=== PATIENT | female | born 1955 | race Two or more races ===

== ENCOUNTER 2018-01-15 19:03 | Emergency (ER) | payer SELFPAY ==
[2018-01-15 19:26] VITALS: BP 155/86
--- NOTE | 2018-01-15 19:49 | UC ---
Shoulder Pain HPI - HPI Summary HPI Summary: 62 yo female presents accompanied by a friend who is acting as her hide inspector and sorter as pt speaks very little German. She tells me that yesterday she woke up with right upper back/neck pain that has persisted into today. She does not recall any injury. She describes the pain as an cramp and ache. She has took ibuprofen this morning with no relief. Denies chest pain, radiation of pain, headache, dizziness, numbness, or tingling. - History of Current Complaint Chief Complaint: UCUpperExtremity Stated Complaint: THROAT,NECK AND SHOULDER PAIN Time Seen by Provider: 01/15/18 19:49 Hx Obtained From: Family/Wire Coiner Hx Last Menstrual Period: post menopause Onset/Duration: Sudden Onset Timing: Constant Severity Initially: Moderate Severity Currently: Moderate Pain Intensity: 6 Pain Scale Used: 0-10 Numeric - Allergies/Home Medications Allergies/Adverse Reactions: Allergies Allergy/AdvReac Type Severity Reaction Status Date / Time No Known Allergies Allergy Verified 01/15/18 20:03 Home Medications: Home Medications Ibuprofen [Advil] 01/15/18 [History] PMH/Surg Hx/FS Hx/Imm Hx - Additional Past Medical History Additional PMH: None Previously Healthy: Yes - Surgical History Surgical History: None - Family History Known Family History: Positive: None - Social History Occupation: Unemployed Lives: With Family Alcohol Use: None Substance Use Type: None Smoking Status (MU): Never Smoked Tobacco Review of Systems Constitutional: Negative Skin: Negative Respiratory: Negative Cardiovascular: Negative Motor: Negative Neurovascular: Negative Musculoskeletal: Other: - Right upper back/neck pain Neurological: Negative Psychological: Negative All Other Systems Reviewed And Are Negative: Yes Physical Exam - Summary Physical Exam Summary: GENERAL: NAD. WDWN. No pain distress. SKIN: No rashes, sores, lesions, or open wounds. NECK: FROM. No LAD. No vertebral tenderness. See MSK CHEST: No accessory muscle use. Breathing comfortably and in no distress. CV: Pulses intact radial and ulnar. MSK: RIGHT trapezius: TTP at superior portion near levator. Pain reproduced with turning the head to the left. Negative spurlings. RIGHT shoulder: FROM. Strength 5/5. No edema or obvious bony deformities. Negative apprehension, empty can, hernandez-robert. NEURO: Alert. Sensations intact C4-T1. PSYCH: Age appropriate behavior. Triage Information Reviewed: Yes Vital Signs: Initial Vital Signs Temp 97.9 F 01/15/18 19:20 Pulse 80 01/15/18 19:20 Resp 16 01/15/18 19:20 BP 155/86 01/15/18 19:20 Pulse Ox 100 01/15/18 19:20 Shoulder Course/Dx - Course Course Of Treatment: Suspect muscle spasm. Last dose of any NSAID was 6+ hours ago, therefore 30mg of toradol was given IM in the clinic. Rx for flexril and advised to perform stretching exercises. F/u prn. - Differential Dx/Diagnosis Provider Diagnoses: Right neck spasm Discharge - Sign-Out/Discharge Documenting (check all that apply): Patient Departure - Discharge Plan Condition: Stable Disposition: HOME Prescriptions: Cyclobenzaprine TAB* [Flexeril 10 MG TAB*] 10 mg PO BID PRN #10 tab PRN Reason: Pain Patient Education Materials: Muscle Spasm (ED) Referrals: No Primary Care Phys,NOPCP [Primary Care Provider] - Additional Instructions: If you develop a fever, shortness of breath, chest pain, new or worsening symptoms - please call your PCP or go to the ED. Your blood pressure was high at todays visit. Please see your primary provider within 4 weeks for recheck and re-evaluation. - Billing Disposition and Condition Condition: STABLE Disposition: Home
[2018-01-15] MEDS ORDERED: Ketorolac INJ* 30 MG/ML 1 ML VIAL IM ONE (20:00)
== END 2018-01-15 20:15 | disposition home or self-care (01) ==
LOC: UCEAST 19:03
DX: M62.838 Other muscle spasm (principal); M54.89 Other dorsalgia
CPT/HCPCS: 96372; 99202; G0463; J1885

== ENCOUNTER 2018-04-30 16:53 | Emergency (ER) | payer SELFPAY ==
[2018-04-30 17:28] VITALS: BP 159/83
[2018-04-30] MEDS ORDERED: Ketorolac INJ* 60 MG/2 ML VIAL IM ONE (19:28)
--- NOTE | 2018-04-30 19:34 | UC ---
Neck Pain HPI - HPI Summary HPI Summary: 2 days of right neck/shoulder muscle pain. No trauma or injury. No numbness or tingling. Patient denies chest pain, shortness of breath, weakness. Had similar symptoms in December 2017 and was seen here in . Diagnosed with muscle strain and treated with Toradol and Flexeril. Patient states this helped and has come here seeking the same treatment. Has not taken any ibuprofen or other analgesics prior to presentation today. Pt only speaks [place] so the steel fixer service was used. - History of Current Complaint Chief Complaint: UCUpperExtremity Stated Complaint: SHOULDER,ARM PAIN Time Seen by Provider: 04/30/18 19:04 Hx Obtained From: Patient, Family/Assistant Kitchen Manager - Hx Last Menstrual Period: post menopause Onset/Duration Of Injury/Symptoms: Days Mechanism Of Injury: No Known Trauma Onset/Duration: Gradual Onset, Lasting Days, Still Present Severity: Moderate Pain Intensity: 3 Pain Scale Used: 0-10 Numeric Location: Discrete At: - RIGHT NECK/SHOULDER Character: Sharp, Spasmotic Aggravating Factors: Movement Alleviating Factors: Nothing Associated Signs & Symptoms: Negative: Swelling, Redness, Bruising, Fever, Nuchal Rigity, Weakness, Headache, Paresthesia - Allergies/Home Medications Allergies/Adverse Reactions: Allergies Allergy/AdvReac Type Severity Reaction Status Date / Time No Known Allergies Allergy Verified 04/30/18 17:28 Home Medications: Home Medications Acetaminophen TAB* [Tylenol TAB*] 650 mg PO Q4H PRN 04/30/18 [History Confirmed 04/30/18] PMH/Surg Hx/FS Hx/Imm Hx Previously Healthy: Yes - Surgical History Surgical History: None - Family History Known Family History: Positive: None - Social History Alcohol Use: None Substance Use Type: None Smoking Status (MU): Never Smoked Tobacco Review Of Systems Constitutional: Positive: Negative Skin: Positive: Negative Respiratory: Positive: Negative Cardiovascular: Positive: Negative Gastrointestinal: Positive: Negative Musculoskeletal: Positive: Myalgia All Other Systems Reviewed And Are Negative: Yes Physical Exam Triage Information Reviewed: Yes Appearance: Well-Appearing, No Pain Distress, Well-Nourished Vital Signs: Initial Vital Signs Temp 98.1 F 04/30/18 17:22 Pulse 66 04/30/18 17:22 Resp 16 04/30/18 17:22 BP 159/83 04/30/18 17:22 Pulse Ox 100 04/30/18 17:22 Vital Signs Reviewed: Yes Eyes: Positive: Conjunctiva Clear ENT: Positive: Hearing grossly normal Neck: Positive: Supple, No Lymphadenopathy, Other: - TTP RIGHT TRAPEZIUS Respiratory: Positive: No respiratory distress, No accessory muscle use Cardiovascular: Positive: Pulses Normal Abdomen Description: Positive: Soft Musculoskeletal: Positive: ROM Intact, No Edema, Other: - NO BONY TENDERNESS NECK OR RIGHT SHOULDER Neurological: Positive: Alert Psychological: Positive: Normal Response To Family, Age Appropriate Behavior Skin: Negative: rashes Neck Pain Course/Dx - Differential Dx/Diagnosis Provider Diagnoses: ACUTE RIGHT TRAPEZIUS STRAIN Discharge - Sign-Out/Discharge Documenting (check all that apply): Patient Departure All imaging exams completed and their final reports reviewed: No Studies - Discharge Plan Condition: Stable Disposition: HOME Prescriptions: Cyclobenzaprine TAB* [Flexeril TAB*] 10 mg PO BID PRN #20 tab PRN Reason: Pain Patient Education Materials: Muscle Spasm (ED) Referrals: No Primary Care Phys,NOPCP [Primary Care Provider] - Additional Instructions: YOU RECEIVED 30MG TORADOL INJECTION TODAY. TAKE MUSCLE RELAXER NEEDED. USE WITH CAUTION IT CAN MAKE YOU DROWSY. BE SURE TO GO THROUGH SLOW RANGE OF MOTION AND STRETCHING EXERCISES DAILY YOU ARE ABLE TO PREVENT STIFFENING UP AND MAKING THE DISCOMFORT WORSE. GO TO THE ED WITHOUT FAIL IF YOU DEVELOP WORSENING PAIN, NUMBNESS/TINGLING OR ANY OTHER CONCERNING SYMPTOMS. CALL THE NUMBER BELOW FOR ASSISTANCE IN ESTABLISHING WITH A PCP An additional resource available to assist in finding the appropriate physician for your health care needs is the [facility] ([facility]). You may contact them by calling [phone]. - Billing Disposition and Condition Condition: STABLE Disposition: Home
== END 2018-04-30 19:46 | disposition home or self-care (01) ==
LOC: UCEAST 16:53
DX: S46.811A Strain of other muscles, fascia and tendons at shoulder and upper arm level, right arm, initial encounter (principal); X58.XXXA Exposure to other specified factors, initial encounter; Y92.9 Unspecified place or not applicable
CPT/HCPCS: 96372; 99212; G0463; J1885

== ENCOUNTER → 2018-11-18 20:35 | Emergency (ER) | payer SELFPAY ==
[~2018-11-18 20:35] MED LIST: Aspirin 81 mg CHEW TAB* 81 MG TAB.CHEW PO ONE; Ketorolac INJ* 30 MG/ML 1 ML VIAL IV PUSH ONE; Ketorolac INJ* 60 MG/2 ML VIAL IM ONE
[2018-11-18 21:04] LABS: ABS Basophils 0.1 10^3/ul (0-0.2); ABS Eosinophils 0.1 10^3/ul (0-0.6); ABS Lymphocytes 3.1 10^3/ul (1.0-4.8); ABS Monocytes 0.6 10^3/ul (0-0.8); ABS Neutrophils 3.3 10^3/ul (1.5-7.7); Eosinophil % 1.5 %; Hematocrit 45 % (35-47); Hemoglobin 15.6 g/dL (12.0-16.0); Lymphocyte % 42.6 %; Mean Corpuscular HGB Conc 35 g/dL (31-36); Mean Corpuscular Hemoglobin 29 pg (27-31); Mean Corpuscular Volume 83 fL (80-97); Mean Platelet Volume 8.8 fL (7.4-10.4); Nucleated Red Blood Cells % 0.3; Platelet Count 342 10^3/uL (150-450); Red Blood Count 5.44 10^6 /uL (3.70-4.87); Red Cell Distribution Width 14 % (10.5-15); White Blood Count 7.2 10^3/uL (3.5-10.8)
[2018-11-18 21:09] LABS: INR 0.96 (0.82-1.09)
--- NOTE | 2018-11-18 21:16 | ED ---
HPI Chest Pain - HPI Summary HPI Summary: The patient is a 63 y/o F presenting to [facility] accompanied by family with a chief complaint of sudden osnet anterior CP this morning while at rest. Two days ago, she started having loose diarrhea and flatulence. Today, she started having intermittent CP. When present, the pain is rated 5/10 in severity. She denies SOB, diaphoresis, and dizziness. No recent travel; she was last on a plane in May 2018. No hx of cardiac conditions, HTN, HLD, or DM. No surgical hx. Nonsmoker, no EtOH, no substance use. - History of Current Complaint Chief Complaint: EDChestPainROMI Hx Obtained From: Patient Hx Last Menstrual Period: post menopause Onset/Duration: Started Hours Ago, Still Present Timing: Intermittent, Lasting Minutes Initial Severity: Moderate Current Severity: Moderate Pain Intensity: 5 Pain Scale Used: 0-10 Numeric Chest Pain Location: Left Anterior, Right Anterior Chest Pain Radiates: No Character: Dull/Aching Aggravating Factor(s): Nothing Alleviating Factor(s): Nothing Associated Signs and Symptoms: Positive: Other: - diarrhea, flaulence. Negative : Dizziness, Shortness of Breath, Diaphoresis - Allergy/Home Medications Allergies/Adverse Reactions: Allergies Allergy/AdvReac Type Severity Reaction Status Date / Time No Known Allergies Allergy Verified 04/30/18 17:28 PMH/Surg Hx/FS Hx/Imm Hx Endocrine/Hematology History: Denies: Hx Diabetes Cardiovascular History: Denies: Hx Hypercholesterolemia, Hx Hypertension, Hx Myocardial Infarction - Surgical History Surgery Procedure, Year, and Place: none Infectious Disease History: No Infectious Disease History: Denies: Traveled Outside the [place] in Last 30 Days - Family History Known Family History: Negative: Cardiac Disease, Hypertension, Diabetes - Social History Lives: With Family Alcohol Use: None Hx Substance Use: No Substance Use Type: Reports: None Hx Tobacco Use: No Smoking Status (MU): Never Smoked Tobacco Do You Chew or Dip Tobacco: No Have You Chewed or Dipped Tobacco in the LAST YEAR: No Have You Smoked in the Last Year: No Review of Systems Negative: Skin Diaphoresis Positive: Chest Pain - anterior Negative: Shortness Of Breath Positive: Diarrhea - soft, Other - flatulence Neurological: Other - NEGATIVE: dizziness All Other Systems Reviewed And Are Negative: Yes Physical Exam - Summary Physical Exam Summary: VITAL SIGNS: Reviewed. GENERAL: Patient is a well-developed and nourished female who is lying comfortable in the stretcher. Patient is not in any acute respiratory distress. HEAD AND FACE: No signs of trauma. No ecchymosis, hematomas or skull depressions. No sinus tenderness. EYES: PERRLA, EOMI x 2, No injected conjunctiva, no nystagmus. EARS: Hearing grossly intact. Ear canals and tympanic membranes are within normal limits. MOUTH: Oropharynx within normal limits. NECK: Supple, trachea is midline, no adenopathy, no JVD, no carotid bruit, no c- spine tenderness, neck with full ROM. CHEST: Symmetric, reproducible chest pain at palpation LUNGS: Clear to auscultation bilaterally. No wheezing or crackles. CVS: Regular rate and rhythm, S1 and S2 present, no murmurs or gallops appreciated. ABDOMEN: Soft, non-tender. No signs of distention. No rebound no guarding, and no masses palpated. Bowel sounds are normal. EXTREMITIES: FROM in all major joints, no edema, no cyanosis or clubbing. NEURO: Alert and oriented x 3. No acute neurological deficits. Speech is normal and follows commands. SKIN: Dry and warm. Triage Information Reviewed: Yes Vital Signs On Initial Exam: Initial Vitals Temp Pulse Resp BP Pulse Ox 97.5 F 77 14 164/95 99 11/18/18 20:44 11/18/18 20:44 11/18/18 20:44 11/18/18 20:44 11/18/18 20:44 Vital Signs Reviewed: Yes Diagnostics - Vital Signs Vital Signs Temp Pulse Resp BP Pulse Ox 11/18/18 20:44 97.5 F 77 14 164/95 99 - Laboratory Lab Results: Lab Results 11/18/18 Range/Units 20:56 WBC 7.2 (3.5-10.8) 10^3/uL RBC 5.44 H (3.70-4.87) 10^6 /uL Hgb 15.6 (12.0-16.0) g/dL Hct 45 (35-47) % MCV 83 (80-97) fL MCH 29 (27-31) pg MCHC 35 (31-36) g/dL RDW 14 (10.5-15) % Plt Count 342 (150-450) 10^3/uL MPV 8.8 (7.4-10.4) fL Neut % (Auto) 46.3 % Lymph % (Auto) 42.6 % [place] % (Auto) 8.7 % Eos % (Auto) 1.5 % Baso % (Auto) 0.9 % Absolute Neuts (auto) 3.3 (1.5-7.7) 10^3/ul Absolute Lymphs (auto) 3.1 (1.0-4.8) 10^3/ul Absolute Monos (auto) 0.6 (0-0.8) 10^3/ul Absolute Eos (auto) 0.1 (0-0.6) 10^3/ul Absolute Basos (auto) 0.1 (0-0.2) 10^3/ul Absolute Nucleated RBC 0.0 10^3/ul Nucleated RBC % 0.3 Result Diagrams: 11/18/18 20:56 11/18/18 20:56 Lab Statement: Any lab studies that have been ordered have been reviewed, and results considered in the medical decision making process. - Radiology CXR Radiology Interpretation Completed By: Radiologist Summary of Radiographic Findings: No acute process. ED physician has reviewed this report. - EKG 2049 Cardiac Rate: NL - 71 BPM EKG Rhythm: Sinus Rhythm Summary of EKG Findings: T wave inversions in V2 and V3, no ST elevations Chest Pain Course/Dx - Course Assessment/Plan: The patient is a 63 y/o F presenting to [facility] accompanied by family with a chief complaint of sudden onset anterior CP this morning while at rest. Two days ago, she started having loose diarrhea and flatulence. Today, she started having intermittent CP. When present, the pain is rated 5/10 in severity. She denies SOB, diaphoresis, and dizziness. No recent travel; she was last on a plane in May 2018. No hx of cardiac conditions, HTN, HLD, or DM. No surgical hx. Nonsmoker, no EtOH, no substance use. Blood test results without any significant abnormality, except for glucose of 112, calcium of 11.3 , and troponin of 0.00. EKG is a normal sinus rhythm and rate without any ST elevations. Chest x-ray impression: No acute pathology. The patient doesnt have any comorbidities. No family history of cardiac disease. Heart score is equal to 1, therefore no suspicion for acute coronary syndrome. The patient is not hypoxic or tachycardic, therefore there is no suspicion for a PE. The chest pain is reproducible, therefore the patient was given Toradol for the pain. I believe that the patient has mostly skeletal pain. Therefore the patient was discharged home with follow-up with primary care physician. Patient reports that all symptoms have resolved. Because the patient has no significant comorbidities and no family history of cardiovascular disease at her age, the patient will be discharged home with follow up with PCP. I discussed all the findings and test results with the patient. Patient was instructed to return to the emergency room immediately if any of the symptoms return or worsen. Patient understands and agrees. Plan of care was discussed with the patient and patient understands and agrees. All questions were answered at patient satisfaction. There were no further complaints or concerns. PE before discharge: CVS: S1 and S2 present. No murmurs appreciated. Abdominal exam before discharge: Soft, non- tender. No signs of distention. No rebound no guarding, and no masses palpated. Bowel sounds are normal. Patient is alert and oriented x 3. Patient is hemodynamically stable. - Chest Pain Differential Diagnosis/HQI/PQRI: Acute OR, ACS, Angina, CHF, Chest Wall, GI Disease, Lower Respiratory Infection - Diagnoses Provider Diagnoses: Atypical chest pain Discharge - Sign-Out/Discharge Documenting (check all that apply): Patient Departure - Patient will be discharged home. Patient Received Moderate/Deep Sedation with Procedure: No - Discharge Plan Condition: Stable Disposition: HOME Patient Education Materials: Chest Pain (DC) Referrals: [facility] [place] [facility] [Outside] - 3 Days Additional Instructions: FOLLOW UP WITH YOUR PRIMARY CARE PROVIDER WITHIN ONE WEEK. RETURN TO THE ED FOR ANY WORSENING OR NEW SYMPTOMS. - Billing Disposition and Condition Condition: STABLE Disposition: Home - Attestation Statements Document Initiated by Jeffery: Yes Documenting Scribe: Afshan Branch Provider For Whom Jeffery is Documenting (Include Credential): MD Cassie Garciaibe Attestation: Afshan Greenwood scribed for Dr. Nj Valenzuela MD on 11/18/18 at 2208. Scribe Documentation Reviewed: Yes Provider Attestation: The documentation as recorded by the Afshan rich accurately reflects the service I personally performed and the decisions made by me, Dr. Nj Valenzuela MD Status of Scribe Document: Viewed
[2018-11-18 21:19] LABS: Albumin 4.9 g/dL (3.2-5.2); Albumin/Globulin Ratio 1.4 (1-3); BUN/Creatinine Ratio 9.1 (8-20); Calcium 11.3 mg/dL (8.6-10.3); EGFR African American 91.6 (>60); EGFR Non-African American 75.7 (>60); Globulin 3.5 g/dL (2-4); Potassium 4.7 mmol/L (3.5-5.0); Total Bilirubin 1.1 mg/dL (0.2-1.0); Total Protein 8.4 g/dL (6.4-8.9)
[2018-11-18 22:09] VITALS: BP 142/85
== END | disposition home or self-care (01) ==
LOC: ED 20:35
DX: R07.89 Other chest pain (principal); R94.31 Abnormal electrocardiogram [ECG] [EKG]
CPT/HCPCS: 36415; 71046; 80053; 84484; 85025; 85610; 93005; 99283; A9270-GY

== ENCOUNTER 2018-12-17 13:30 | Emergency (ER) | payer SELFPAY ==
[2018-12-17 13:40] VITALS: BP 128/77
[2018-12-17] MEDS ORDERED: Ibuprofen TAB* 600 MG PO ONE (16:10)
--- NOTE | 2018-12-17 16:13 | UC ---
Back Pain HPI - HPI Summary HPI Summary: Patient presents to urgent care with her . Patient does not speak Romansh fluently. 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 Patient with a history of back and shoulder pain. Patient has been seen at urgent care for the same pain as well as at her home in [facility]. Patient states pain is been getting worse for 3-4 days. Patient has a remote history of having injections in the shoulder which temporarily relieved her pain. Patient states she took Tylenol once without relief. Patient without any arm paresthesias or weakness. No chest pain or shortness of breath. No abdominal pain. Patient states pain is [place] which is express in the past was lasting longer. Patient does not have a primary care provider here evident. Patient was last in [facility] 4 months ago where she saw her doctor. Patient scheduled to be in the until April. Patient's medications reviewed this visit. Patient without any trauma. Patient is right-hand dominant. - History of Current Complaint Chief Complaint: UCBackPain Stated Complaint: SHOULDER AND ARM PAIN Time Seen by Provider: 12/17/18 15:37 Hx Obtained From: Patient Hx Last Menstrual Period: post menopause ?: No Onset/Duration: Gradual Onset Timing: Constant Severity Initially: Moderate Severity Currently: Moderate Pain Intensity: 4 - Allergies/Home Medications Allergies/Adverse Reactions: Allergies Allergy/AdvReac Type Severity Reaction Status Date / Time No Known Allergies Allergy Verified 12/17/18 13:40 PMH/Surg Hx/FS Hx/Imm Hx - Additional Past Medical History Additional PMH: arthritis Previously Healthy: Yes Cardiovascular History: Hypertension - Surgical History Surgical History: None Surgery Procedure, Year, and Place: none - Family History Known Family History: Positive: None Negative: Cardiac Disease, Hypertension, Diabetes - Social History Occupation: Unemployed Lives: With Family Alcohol Use: None Substance Use Type: None Smoking Status (MU): Never Smoked Tobacco Have You Smoked in the Last Year: No Review of Systems All Other Systems Reviewed And Are Negative: Yes Constitutional: Positive: Negative Skin: Positive: Negative Eyes: Positive: Negative ENT: Positive: Negative Respiratory: Positive: Negative Cardiovascular: Positive: Negative Gastrointestinal: Positive: Negative Genitourinary: Positive: Negative Motor: Positive: Other - back pain Is Patient Immunocompromised?: No Physical Exam - Summary Physical Exam Summary: Vital Signs Reviewed: Yes A+Ox3, no distress, easily changes position lying to sitting, standing Eyes: Conjunctiva Clear, DHEERAJ. EOM intact and full ENT: Hearing grossly normal TM x 2 clear, mmoist, uvula midline, no exudate, no erythema Neck: Positive: Supple Respiratory: Positive: No respiratory distress, No accessory muscle use + CTA throughout no w/r Cardiovascular: RRR nl s1, s2 no m/r CBT <2 sec abd soft + BS nt/nd no guarding, no distension Musculoskeletal Exam: no spinous process pain c/t/l/s Full AROM + TTP right mid thoracic paraspinal discomfort with direct palpation No crepitus Full AROM upper ext with 5/5 strength Neurological: Positive: Alert, + sensation throughout Psychological: Positive: Normal Response To Family Skin: Positive: no rash, no ecchymosis Vital Signs: Initial Vital Signs Temp 98 F 12/17/18 13:36 Pulse 78 12/17/18 13:36 Resp 16 12/17/18 13:36 BP 128/77 12/17/18 13:36 Pulse Ox 100 12/17/18 13:36 Diagnostics - Radiology No standard instances Radiology Interpretation Completed By: Radiologist - Patient Name: JARAD VILLAGRAN Medical Record#: [id number] Ordering Physician: Maria Luisa Ruiz MD Acct.#: [id number] : 1955 Age: 63 Sex: F Location: [facility] Exam Date: 12/17/18 1610 ADM Status: REG ER Order Information: THORACIC SPINE 2 S Accession Number: [id number] CPT: 54152 INDICATION: Midthoracic back pain COMPARISON: Chest x-ray dated November 18, 2018 TECHNIQUE: 2 views of the thoracic spine were obtained. FINDINGS: The vertebra are in normal alignment. No fracture is seen. There is multilevel degenerative disc disease with mild marginal osteophyte formation. IMPRESSION: Mild multilevel degenerative change without radiographically apparent acute fracture or dislocation. <Electronically signed by William Fair MD in OV> 12/17/181712 Dictated By: William Fair MD Dictated Date/Time: 1712 Transcribed Date/Time: 12/17/181712 Copy to: CC:Maria Luisa Ruiz MD; No Primary Care Phys,[facility] Imaging - [facility] Imaging - [facility] Imaging - [facility] [address] [address] [place] [address] [place] [address] ph ) ph ([phone]) ph ([phone]) This report is only to be considered final once signed by the Provider(s) as displayed in the "<Electronically Signed by >" field (s). Absence of a signature indicates the report is in a draft status and still needs to be finalized. In the event this document was created by someone other than the signing Provider, the individual initiating the document will be listed in the "Entered by:" or "Dictated by:" gupta. 1 of Re-Evaluation - Re-Evaluation First Eval Comment: At this time there is a getting member in the room who is bilingual went to interpret. Patient indicates she is comfortable with this plan. This translator and interpreter states patient does not have a doctor here in the . Patient does have a PCP in [place] and is scheduled to return to [facility] in April. Patient has had injections in her shoulder as well as ongoing intermittent back pain similar today. No trauma. Reviewed images. Patient states Tylenol help. I was requested to write prescriptions for 3-4 months. Explain that this was not appropriate plan of care urgent care. We'll give patient referral to physical therapy as well as [facility] / Pat Pacheco strongly encouraged to call. Explain this is the appropriate service for short-term intermittent care. States understanding agreement with plan. Flier and business card given. Strict return precautions offered. Heat/Motrin/Tylenol and Flexeril. Flexeril precaution Back Pain Course/Dx - Course Course Of Treatment: With use of translator and interpreter phone, patient with mid thoracic paraspinal pain. Patient has had this before. Patient with flares of similar past. Patient took Tylenol without relief. On exam vital signs are stable. Patient with focal paraspinal muscle spasm palpable. Patient with good range of motion. Patient does not appear in significant distress and easily changes position. We 'll check imaging. We'll give ibuprofen. Anticipate discharge with plan for follow-up with [facility]. Will use translator and interpreter go over results. Patient has been comfortable in agreement. No other questions at this time with translator and interpreter - Differential Dx/Diagnosis Provider Diagnosis: Pain of paraspinal muscle Discharge - Sign-Out/Discharge Documenting (check all that apply): Patient Departure All imaging exams completed and their final reports reviewed: No Studies - Discharge Plan Condition: Stable Disposition: HOME Prescriptions: Cyclobenzaprine TAB* [Flexeril 10 MG TAB*] 5 mg PO BID PRN #10 tab PRN Reason: back pain Ibuprofen TAB* [Motrin TAB* 400 MG] 400 mg PO Q6H PRN #30 tab PRN Reason: back pain Patient Education Materials: Lower Back Exercises (ED), Thoracic Back Strain ( ED) Referrals: [facility] [Outside] [facility] [Outside] Additional Instructions: Okay to alternate ibuprofen (Advil, Motrin) 400mg and Tylenol product ( acetaminophen) every 3 hours for pain. Take with food. Do NOT take for more than 4-5 days. Take muscle relaxer as prescribed. this medication will make you tired - do NOT drive, operate machinery or drink alcohol while taking this medication Apply heat to your muscle pain - once your muscles are warm, slow gentle stretching exercises are important If you develop chest pain, shortness of breath, nausea, vomiting it is recommended you go directly to the emergency department - okay to call 911- for further evaluation it is strongly recommended you establish with a primary doctor in [place] - you can call the physician referral center or the [facility] for a follow-up appointment - Billing Disposition and Condition Condition: STABLE Disposition: Home
== END 2018-12-17 17:55 | disposition home or self-care (01) ==
LOC: UCEAST 13:30
DX: S29.012A Strain of muscle and tendon of back wall of thorax, initial encounter (principal); X58.XXXA Exposure to other specified factors, initial encounter; Y92.9 Unspecified place or not applicable; I10 Essential (primary) hypertension
CPT/HCPCS: 72070; 99212; A9270-GY; G0463

== ENCOUNTER 2018-12-17 20:20 | Emergency (ER) | payer SELFPAY ==
[2018-12-17] MEDS ORDERED: Cyclobenzaprine TAB* 10 MG PO ONE (23:37)
[2018-12-17] MEDS ORDERED: Ibuprofen TAB* 400 MG PO ONE (23:38)
--- NOTE | 2018-12-17 23:43 | ED ---
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 Hx Last Menstrual Period: post menopause Onset/Duration: Gradual Onset, Lasting Weeks, Worse Since - past 1-2 days after running out of medications Onset/Duration: Started Weeks Ago, Atraumatic Timing: Constant Back Pain Location: Is Diffuse Pain Intensity: 9 Pain Scale Used: 0-10 Numeric Character: Aching, Throbbing, Stiffness Aggravating Symptom(s): Movement Alleviating Symptom(s): Other - ibuprofen and flexeril Associated Signs And Symptoms: Positive: Negative - Allergies/Home Medications Allergies/Adverse Reactions: Allergies Allergy/AdvReac Type Severity Reaction Status Date / Time No Known Allergies Allergy Verified 12/17/18 13:40 PMH/Surg Hx/FS Hx/Imm Hx Previously Healthy: Yes Endocrine/Hematology History: Denies: Hx Diabetes Cardiovascular History: Denies: Hx Hypercholesterolemia, Hx Hypertension, Hx Myocardial Infarction - Cancer History Cancer Type, Location and Year: denied - Surgical History Surgery Procedure, Year, and Place: none Infectious Disease History: No Infectious Disease History: Denies: Traveled Outside the [place] in Last 30 Days - Family History Known Family History: Positive: None Negative: Cardiac Disease, Hypertension, Diabetes - Social History Occupation: Retired Lives: With Family Alcohol Use: None Hx Substance Use: No Substance Use Type: Reports: None Hx Tobacco Use: No Smoking Status (MU): Never Smoked Tobacco Have You Smoked in the Last Year: No Review of Systems Constitutional: Negative Eyes: Negative ENT: Negative Cardiovascular: Negative Respiratory: Negative Gastrointestinal: Negative Genitourinary: Negative Positive: Arthralgia, Myalgia Skin: Negative Neurological: Negative Psychological: Normal All Other Systems Reviewed And Are Negative: Yes Physical Exam Triage Information Reviewed: Yes Vital Signs On Initial Exam: Initial Vitals Temp Pulse Resp BP Pulse Ox 98.1 F 77 18 137/74 97 12/17/18 20:23 12/17/18 20:23 12/17/18 20:23 12/17/18 20:23 12/17/18 20:23 Vital Signs Reviewed: Yes Appearance: Positive: Well-Appearing, No Pain Distress, Well-Nourished Skin: Positive: Warm, Skin Color Reflects Adequate Perfusion Head/Face: Positive: Normal Head/Face Inspection Eyes: Positive: Normal, EOMI, DHEERAJ, Conjunctiva Clear ENT: Positive: Normal ENT inspection, Hearing grossly normal. Negative: Nasal congestion, Trismus, Muffled voice Neck: Positive: Supple, Nontender Respiratory/Lung Sounds: Positive: Clear to Auscultation, Breath Sounds Present Cardiovascular: Positive: Normal, RRR Musculoskeletal: Positive: Normal, Strength/ROM Intact. Negative: Supa Sign Left, Supa Sign Right, Edema Left, Edema Right Neurological: Positive: Normal, Sensory/Motor Intact, Alert, Oriented to Person Place, Time, CN Intact II-III Psychiatric: Positive: Normal AVPU Assessment: Alert - Braxton Coma Scale Best Eye Response: 4 - Spontaneous Best Motor Response: 6 - Obeys Commands Best Verbal Response: 5 - Oriented Coma Scale Total: 15 Diagnostics - Vital Signs Vital Signs Temp Pulse Resp BP Pulse Ox 12/17/18 20:23 98.1 F 77 18 137/74 97 - Laboratory Lab Statement: Any lab studies that have been ordered have been reviewed, and results considered in the medical decision making process. Back Pain Course/Dx - Course Assessment/Plan: referral and information provided for [facility], continue ibuprofen and 5 mg of flexeril, follow at [facility] - Diagnoses Provider Diagnoses: Arthritis, Degenerative joint disease involving multiple joints Discharge - Sign-Out/Discharge Documenting (check all that apply): Patient Departure Patient Received Moderate/Deep Sedation with Procedure: No - Discharge Plan Condition: Stable Disposition: HOME Prescriptions: Cyclobenzaprine TAB* [Flexeril 10 MG TAB*] 5 mg PO BID PRN #20 tab PRN Reason: Pain Ibuprofen 400 mg PO Q6H PRN #20 tablet PRN Reason: pain Patient Education Materials: Osteoarthritis (DC), Chronic Pain (ED), Degenerative Disc Disease (ED) Referrals: [facility] [Outside] - 1 Week - Billing Disposition and Condition Condition: STABLE Disposition: Home
[2018-12-18 00:07] VITALS: BP 124/76
== END 2018-12-18 00:06 | disposition home or self-care (01) ==
LOC: ED 20:20
DX: M19.90 Unspecified osteoarthritis, unspecified site (principal); M79.10 Myalgia, unspecified site
CPT/HCPCS: 99282; A9270-GY